=== PATIENT | male | born 1995 | race Caucasian/White ===

== ENCOUNTER 2018-09-18 13:11 | Emergency (ER) | payer SELFPAY ==
--- NOTE | 2018-09-18 13:57 | ED ---
Abdominal Pain/Male - HPI Summary HPI Summary: Patient is a 22 y/o M w/ c/o RLQ pain, N/V, dizziness and weakness. He states that he was struck by a snowball five days ago at this area and experienced immediate pain, stating the impact caused him to double over. Pain is reported to be constant. Patient notes that lying down alleviates pain, denies exacerbation of pain after eating. Today, while shopping at [facility], he experienced weakness, dizziness, nausea, and vomiting once. He denies testicular pain, scrotum pain. PMHx of diabetes is denied, FMHx of diabetes is endorsed, patient states in the room he does not smoke cigarettes or drinks alc. Fever, chills, erythema of eyes, sore throat, chest pain, SOB, cough, dysuria, hematuria, myalgia, edema, rash are not reported. On triage, pain is rated 3/10 , nothing is noted to aggravate/alleviate Sx. Home medications and allergies are reviewed. - History of Current Complaint Chief Complaint: EDAbdPain Stated Complaint: ABD PAIN Time Seen by Provider: 09/18/18 13:53 Hx Obtained From: Patient Onset/Duration: Lasting Hours - weakness, dizziness, nausea, and vomiting, Lasting Days - abdominal pain five days, Still Present Timing: Constant, Lasting Hours - weakness, dizziness, nausea, and vomiting, Lasting Days - abdominal pain five days Severity Currently: Mild - 3/10 Pain Intensity: 3 Pain Scale Used: 0-10 Numeric - 3/10 Location: Discrete At: RLQ Aggravating Factor(s): Nothing Alleviating Factor(s): Position - lying flat Associated Signs And Symptoms: Positive: Dizzy, Nausea, Vomiting, Other - Fever , chills, erythema of eyes, sore throat, chest pain, SOB, cough, dysuria, hematuria, myalgia, edema, rash are not reported.. Negative: Fever, Cough, Chest Pain, Urinary Symptoms - Allergies/Home Medications Allergies/Adverse Reactions: Allergies Allergy/AdvReac Type Severity Reaction Status Date / Time No Known Allergies Allergy Verified 09/18/18 13:59 PMH/Surg Hx/FS Hx/Imm Hx Endocrine/Hematology History: Denies: Hx Diabetes Psychiatric History: Reports: Hx Anxiety - Surgical History Surgery Procedure, Year, and Place: removal of benign lump at left breast Infectious Disease History: No Infectious Disease History: Denies: Traveled Outside the [place] in Last 30 Days - Family History Known Family History: Positive: Diabetes - Social History Alcohol Use: None Substance Use Type: Reports: None Smoking Status (MU): Former Smoker Review of Systems Positive: Fatigue. Negative: Fever, Chills Negative: Erythema Negative: Sore Throat Negative: Chest Pain Negative: Shortness Of Breath, Cough Positive: Abdominal Pain - RLQ , Vomiting, Nausea Negative: pain - NEGATIVE - TESTICULAR PAIN, SCROTUM PAIN Negative: Myalgia, Edema Negative: Rash Neurological: Other - POSITIVE - DIZZINESS All Other Systems Reviewed And Are Negative: Yes Physical Exam - Summary Physical Exam Summary: Constitutional: Well-developed, Well-nourished, Alert. (-) Distressed Skin: Warm, Dry HENT: Normocephalic; Atraumatic Eyes: Conjunctiva normal Neck: Musculoskeletal ROM normal neck. (-) JVD, (-) Stridor, (-) Tracheal deviation Cardio: Rhythm regular, rate normal, Heart sounds normal; Intact distal pulses; The pedal pulses are 2+ and symmetric. Radial pulses are 2+ and symmetric. (-) Murmur Pulmonary/Chest wall: Effort normal. (-) Respiratory distress, (-) Wheezes, (-) Rales Abd: Soft, (-) epigastric tenderness, (+) exquisite RLQ tenderness (-) Distension, (+) Guarding at RLQ, (-) Rebound Musculoskeletal: (-) Edema (-) Bruising Lymph: (-) Cervical adenopathy Neuro: Alert, Oriented x3 Psych: Mood and affect Normal Triage Information Reviewed: Yes Vital Signs On Initial Exam: Initial Vitals Temp Pulse Resp BP Pulse Ox 98.5 F 89 16 117/80 98 09/18/18 13:12 09/18/18 13:12 09/18/18 13:12 09/18/18 13:12 09/18/18 13:12 Vital Signs Reviewed: Yes Diagnostics - Vital Signs Vital Signs Temp Pulse Resp BP Pulse Ox 09/18/18 13:12 98.5 F 89 16 117/80 98 - Laboratory Result Diagrams: 09/18/18 14:05 09/18/18 14:05 Lab Statement: Any lab studies that have been ordered have been reviewed, and results considered in the medical decision making process. - CT ABD/PEL CT CT Interpretation Completed By: Radiologist Summary of CT Findings: CT ABD/PEL IMPRESSION: There is a trace amount of free fluid in the cul-de-sac. No abnormal masses or fluid collections are noted. Hepatosplenomegaly. No evidence of solid organ injury is noted. THIS REPORT WAS REVIEWED BY ED PHYSICIAN. Re-Evaluation - Re-Evaluation First Eval Re-Evaluation Time: 14:46 Change: Worse Comment: Area above SL reddened and itchy, Benadryl PO ordered Second Eval Re-Evaluation Time: 15:52 Change: Improved Comment: Area above SL reddened and itchy Sx resolved after benadryl PO. Third Eval Re-Evaluation Time: 16:20 Change: Improved Comment: Patient's pain is reported to be better, patient tolerated PO. He will be discharged to home and follow up with PCP, patient is agreeable with this plan. Abdominal Pain Fem Course/Dx - Course Course Of Treatment: Patient is a 22 y/o M w/ c/o RLQ pain, N/V, dizziness and weakness. He states that he was struck by a snowball five days ago at this area and experienced immediate pain, stating the impact caused him to double over. Pain is reported to be constant. Patient notes that lying down alleviates pain, denies exacerbation of pain after eating. Today, while shopping at [facility], he experienced weakness, dizziness, nausea, and vomiting once. He denies testicular pain, scrotum pain. PMHx of diabetes is denied, FMHx of diabetes is endorsed, patient states in the room he does not smoke cigarettes or drinks alc. On physical exam, patient is noted to have no bruises. At RLQ, exquisite tenderness with guarding. 1620 - Patient's pain is reported to be better, patient tolerated PO. He will be discharged to home and follow up with PCP, patient is agreeable with this plan. Area above SL reddened and itchy, patient was given Benadryl PO which alleviated Sx. During ED course, patient received Zofran 4 mg IV ED ONCE ONE, Morphine 4 mg IV ED ONCE ONE, and Benadryl 50 mg PO ED ONCE ONE. UA was negative. Labs showed lactic acid 1.5, glucose 108, WBC 11.8, Absolute Neuts 10.3, absolute nymphs 0.8. CT ABD/PEL IMPRESSION: There is a trace amount of free fluid in the cul-de-sac. No abnormal masses or fluid collections are noted. Hepatosplenomegaly. No evidence of solid organ injury is noted. Patient's case was discussed with Dr. Ochoa, in particular CT ABD/ PEL. He states that patient has a normal appendix. - Diagnoses Provider Diagnoses: Abdominal contusion - Provider Notifications Discussed Care Of Patient With: Opal Ochoa Time Discussed With Above Provider: 16:15 Instructed by Provider To: Other - Patient's case was discussed with Dr. Ochoa, in particular CT ABD/PEL. He states that patient has a normal appendix. Discharge - Sign-Out/Discharge Documenting (check all that apply): Patient Departure - discharge - Discharge Plan Condition: Stable Disposition: HOME Prescriptions: Naproxen TAB* [Naprosyn 250 mg TAB*] 500 mg PO Q8H PRN #15 tab PRN Reason: Pain - Moderate To Severe Ondansetron ODT TAB* [Zofran 4 MG Odt TAB*] 4 mg PO Q8H PRN #10 tab.odt PRN Reason: Nausea/Vomiting traMADol TAB* [Ultram*] 50 mg PO Q6HR PRN #12 tab MDD 4 PRN Reason: Pain - Moderate To Severe Patient Education Materials: Contusion in Adults (ED) Referrals: Sami Benavides DO [Doctor of Osteopathy] - 3 Days Additional Instructions: RETURN TO ED FOR ANY NEW OR WORSENING SYMPTOMS. FOLLOW UP WITH PRIMARY CARE PHYSICIAN IN 2-3 DAYS. - Attestation Statements Document Initiated by Scribe: Yes Documenting Scribe: VAUGHN JOHNSON Provider For Whom Brandonibe is Documenting (Include Credential): STEVE IRAHETA MD Scribe Attestation: VAUGHN Avila , scribed for STEVE IRAHETA MD on 09/18/18 at 1642. Status of Scribe Document: Ready
[2018-09-18] MEDS ORDERED: Ondansetron INJ* 2 MG/ML VIAL IV ONE (14:00)
[2018-09-18] MEDS ORDERED: Morphine VIAL* 4 MG/ML VIAL (1 ml vial) IV ONE (14:00)
[2018-09-18 14:19] LABS: ABS Basophils 0 10^3/ul (0-0.2); ABS Eosinophils 0 10^3/ul (0-0.6); ABS Lymphocytes 0.8 10^3/ul (1.0-4.8); ABS Monocytes 0.6 10^3/ul (0-0.8); ABS Neutrophils 10.3 10^3/ul (1.5-7.7); ABS Nucleated RBC 0 10^3/ul; Eosinophil % 0.3 %; Hematocrit 45 % (42-52); Hemoglobin 15.7 g/dl (14.0-18.0); Lymphocyte % 6.5 %; Mean Corpuscular HGB Conc 35 g/dl (31-36); Mean Corpuscular Hemoglobin 30 pg (27-31); Mean Corpuscular Volume 86 fL (80-94); Mean Platelet Volume 9.2 fL (7.4-10.4); Nucleated Red Blood Cells % 0.1; Platelet Count 208 10^3/ul (150-450); Red Cell Distribution Width 13 % (10.5-15); White Blood Count 11.8 10^3/ul (3.5-10.8)
[2018-09-18] MEDS ORDERED: diPHENhydraMINE PO* 50 MG PO ONE (14:34)
[2018-09-18 15:03] LABS: EGFR Non-African American 95.6 (>60)
[2018-09-18] MEDS ORDERED: Iohexol 300* (CONTRAST) 10 ML SDV IV ONE (15:18)
[2018-09-18 16:14] LABS: Urine Appearance Clear; Urine Blood Negative (Negative); Urine Color Yellow; Urine Ketones Negative (Negative); Urine Protein Negative (Negative); Urine Specific Gravity 1.021 (1.010-1.030); Urine Urobilinogen Negative (Negative)
[2018-09-18 17:00] VITALS: BP 138/76
== END 2018-09-18 16:59 | disposition home or self-care (01) ==
LOC: ED 13:11
DX: S30.1XXA Contusion of abdominal wall, initial encounter (principal); W20.8XXA Other cause of strike by thrown, projected or falling object, initial encounter; Y92.9 Unspecified place or not applicable; R11.2 Nausea with vomiting, unspecified; R42 Dizziness and giddiness; R53.83 Other fatigue; Z87.891 Personal history of nicotine dependence
CPT/HCPCS: 36415; 74177; 80053; 81003; 83605; 85025; 96374; 96375; 99283; A9270-GY; J2270; J2405; Q9967

== ENCOUNTER 2018-10-25 19:24 | Emergency (ER) | payer OTHER ==
--- NOTE | 2018-10-25 21:54 | ED ---
Skin Complaint - HPI Summary HPI Summary: This patient is a 22 year old M presenting to [facility] with a chief complaint of erythematous rash on his back, arms, legs, and feet since 10/23/18. The patient rates the pain 3/10 in severity. Patient reports pruritus. Patient denies fever. The patient states that he tried to treat the rash with allergy medication and anti-itch cream, but was unsuccessful. The rash has not been spreading. SHX living at a hotel for 2 weeks. - History of Current Complaint Chief Complaint: EDRashSkinAbscess Stated Complaint: RASH Hx Obtained From: Patient Onset/Duration: Started Days Ago - 2 Timing: Constant Onset Severity: Mild Current Severity: Mild Pain Intensity: 3 Pain Scale Used: 0-10 Numeric Skin Location: Diffuse Character: Pruritus, Redness, Raised Associated Signs & Symptoms: Rash - Allergy/Home Medications Allergies/Adverse Reactions: Allergies Allergy/AdvReac Type Severity Reaction Status Date / Time No Known Allergies Allergy Verified 10/25/18 19:32 PMH/Surg Hx/FS Hx/Imm Hx Endocrine/Hematology History: Denies: Hx Diabetes Sensory History: Denies: Hx Deafness Psychiatric History: Reports: Hx Anxiety - Surgical History Surgery Procedure, Year, and Place: removal of benign lump at left breast Infectious Disease History: No Infectious Disease History: Denies: Traveled Outside the [place] in Last 30 Days - Family History Known Family History: Positive: Diabetes Negative: Blood Disorder - Social History Alcohol Use: None Substance Use Type: Reports: None Smoking Status (MU): Former Smoker Review of Systems Negative: Fever Positive: Rash, Other - pruritus All Other Systems Reviewed And Are Negative: Yes Physical Exam - Summary Physical Exam Summary: Appearance: Well-appearing, Well-nourished, lying in bed comfortable Skin: Warm, dry. Numerable round, erythematous, centrally indurated skin lesions associated with insect bites No signs of associated cellulitis. Eyes: sclera anicteric, no conjunctival pallor ENT: mucous membranes moist Neck: deferred Respiratory: No signs of respiratory distress Cardiovascular: Appears well perfused, pulses are nml Abdomen: deferred Musculoskeletal: Moving all 4 extremities without obvious discomfort Neurological: Awake and alert, mentation is normal, speech is fluent and appropriate Psychiatric: affect is normal, does not appear anxious or depressed Triage Information Reviewed: Yes Vital Signs On Initial Exam: Initial Vitals Temp Pulse Resp BP Pulse Ox 99.7 F 88 16 123/79 100 10/25/18 19:28 10/25/18 19:28 10/25/18 19:28 10/25/18 19:28 10/25/18 19:28 Vital Signs Reviewed: Yes Diagnostics - Vital Signs Vital Signs Temp Pulse Resp BP Pulse Ox 10/25/18 19:28 99.7 F 88 16 123/79 100 - Laboratory Lab Statement: Any lab studies that have been ordered have been reviewed, and results considered in the medical decision making process. Course/Dx - Course Assessment/Plan: This patient is a 22 year old M presenting to [facility] with a chief complaint of erythematous rash on his back, arms, legs, and feet since 10/23. The patient rates the pain 3/10 in severity. Patient reports pruritus. Patient denies fever. The patient states that he tried to treat the rash with allergy medication and anti-itch cream, but was unsuccessful. The rash has not been spreading. SHX living at a hotel for 2 weeks. Patient will be discharged with prescription for Hydroxyzine pamoate and follow up from Dr. Benavides. The patient is agreeable with this plan. - Diagnoses Provider Diagnoses: Insect bite, Bed bug bite Discharge - Sign-Out/Discharge Documenting (check all that apply): Patient Departure - discharge - Discharge Plan Condition: Good Disposition: HOME Prescriptions: hydrOXYzine pamoate [Vistaril] 50 mg PO TID PRN #30 capsule PRN Reason: Pruritis Patient Education Materials: Insect Bite or Sting (ED), Bed Bugs (ED) Referrals: Sami Benavides DO [Primary Care Provider] - 1 Week (if not improving) - Billing Disposition and Condition Condition: GOOD Disposition: Home - Attestation Statements Document Initiated by Brandonibtre: Yes Documenting Scribe: Donell Shaw Provider For Whom Maria Esther is Documenting (Include Credential): Gary Shirley MD Scribe Attestation: Donell Avila, brandonibed for Gary Shirley MD on 10/26/18 at 0449. Scribe Documentation Reviewed: Yes Provider Attestation: The documentation as recorded by the Donell dill accurately reflects the service I personally performed and the decisions made by me, Gary Shirley MD Status of Scribe Document: Viewed
[2018-10-25 21:58] VITALS: BP 112/73
== END 2018-10-25 21:57 | disposition home or self-care (01) ==
LOC: ED 19:24
DX: S40.862A Insect bite (nonvenomous) of left upper arm, initial encounter (principal); S40.861A Insect bite (nonvenomous) of right upper arm, initial encounter; S80.862A Insect bite (nonvenomous), left lower leg, initial encounter; S80.861A Insect bite (nonvenomous), right lower leg, initial encounter; S90.862A Insect bite (nonvenomous), left foot, initial encounter; S90.861A Insect bite (nonvenomous), right foot, initial encounter; W57.XXXA Bitten or stung by nonvenomous insect and other nonvenomous arthropods, initial encounter; Y92.9 Unspecified place or not applicable; Z87.891 Personal history of nicotine dependence
CPT/HCPCS: 99281

== ENCOUNTER 2019-01-22 16:41 | Emergency (ER) | payer OTHER ==
[2019-01-22 17:14] LABS: Influenza A Molecular NEGATIVE (Negative); Influenza B Molecular NEGATIVE (Negative)
[2019-01-22 17:27] LABS: Rapid Strep Molecular Negative (Negative)
--- NOTE | 2019-01-22 17:37 | ED ---
Throat Pain/Nasal Congestion - HPI Summary HPI Summary: 23 year old male presents with nasal congestion and sore throat for the past couple days. He denies any fevers. He admits to fatigue. Admits occasional headache. No neck stiffness denies any chest pressures or shortness of breath. No bowel pain. No nausea vomiting. He has no medical conditions who is nonsmoker. Cough is dry. He states sinus congestion and sore throat are bothering him the most. - History of Current Complaint Chief Complaint: EDFluSymptoms Time Seen by Provider: 01/22/19 17:05 - Allergies/Home Medications Allergies/Adverse Reactions: Allergies Allergy/AdvReac Type Severity Reaction Status Date / Time No Known Allergies Allergy Verified 01/22/19 17:02 PMH/Surg Hx/FS Hx/Imm Hx Endocrine/Hematology History: Denies: Hx Diabetes Respiratory History: Denies: Hx Asthma Sensory History: Denies: Hx Deafness Psychiatric History: Reports: Hx Anxiety - Surgical History Surgery Procedure, Year, and Place: removal of benign lump at left breast Infectious Disease History: No Infectious Disease History: Denies: Traveled Outside the [place] in Last 30 Days - Family History Known Family History: Positive: Diabetes Negative: Blood Disorder - Social History Alcohol Use: None Substance Use Type: Reports: None Smoking Status (MU): Former Smoker Review of Systems Negative: Fever Positive: Sore Throat, Nasal Discharge Negative: Chest Pain Positive: Cough. Negative: Shortness Of Breath Negative: Abdominal Pain All Other Systems Reviewed And Are Negative: Yes Physical Exam Triage Information Reviewed: Yes Vital Signs On Initial Exam: Initial Vitals Temp Pulse Resp BP Pulse Ox 97.8 F 89 20 139/90 100 01/22/19 16:46 01/22/19 16:46 01/22/19 16:46 01/22/19 16:46 01/22/19 16:46 Vital Signs Reviewed: Yes Appearance: Positive: Well-Appearing Skin: Positive: Warm, Dry Head/Face: Positive: Normal Head/Face Inspection Eyes: Positive: Normal, EOMI, KATTY, Conjunctiva Clear ENT: Positive: Normal ENT inspection, Pharyngeal erythema, Nasal congestion, TMs normal, Uvula midline, Other - soft palate symmetric. Negative: Tonsillar swelling, Tonsillar exudate, Trismus, Muffled voice Respiratory/Lung Sounds: Positive: Clear to Auscultation, Breath Sounds Present Cardiovascular: Positive: Normal, RRR Abdomen Description: Positive: Nontender, Soft Bowel Sounds: Positive: Present Musculoskeletal: Positive: Normal Neurological: Positive: Normal Psychiatric: Positive: Normal Diagnostics - Vital Signs Vital Signs Temp Pulse Resp BP Pulse Ox 01/22/19 16:46 97.8 F 89 20 139/90 100 - Laboratory Lab Results: Lab Results 01/22/19 01/22/19 Range/Units 16:50 17:04 Influenza A (Rapid) Negative (Negative) Influenza B (Rapid) Negative (Negative) Group A Strep Rapid Negative (Negative) Lab Statement: Any lab studies that have been ordered have been reviewed, and results considered in the medical decision making process. EENT Course/Dx - Course Course Of Treatment: 23 year old male presents with nasal congestion and sore throat for the past couple days. He denies any fevers. He admits to fatigue. Admits occasional headache. No neck stiffness denies any chest pressures or shortness of breath. No bowel pain. No nausea vomiting. He has no medical conditions who is nonsmoker. Cough is dry. He states sinus congestion and sore throat are bothering him the most. On exam lungs clear to auscultation. Pharynx erythematous. Uvula midline. Soft palate symmetric. sinus congestion Strep flu negative. We'll give Flonase for sinus congestion. Patient understands agrees plan. - Differential Diagnoses Differential Diagnoses: Sinusitis, URI/Bronchitis, Other - strept - Diagnoses Provider Diagnoses: Upper respiratory infection Discharge - Sign-Out/Discharge Documenting (check all that apply): Patient Departure Patient Received Moderate/Deep Sedation with Procedure: No - Discharge Plan Condition: Good Disposition: HOME Prescriptions: Fluticasone NASAL SPRAY 50MCG* [Flonase NASAL SPRAY 50MCG*] 2 spray BOTH NARES DAILY #1 btl Patient Education Materials: Upper Respiratory Infection (ED) Referrals: Sami Benavides DO [Primary Care Provider] - Additional Instructions: Use saline spray in nose as much as needed can use sudafed daily Use intranasal steroid one spray each nostril twice a day Take Tylenol or ibuprofen for headache every 6 hours Follow up with primary in 5 days if no improvement Return to ED if develop any new or worsening symptoms - Billing Disposition and Condition Condition: GOOD Disposition: Home
[2019-01-22 18:08] VITALS: BP 126/71
== END 2019-01-22 18:07 | disposition home or self-care (01) ==
LOC: ED 16:41
DX: J06.9 Acute upper respiratory infection, unspecified (principal); R53.83 Other fatigue; Z87.891 Personal history of nicotine dependence
CPT/HCPCS: 87651; 99282

== ENCOUNTER 2019-04-29 19:42 | Emergency (ER) | payer SELFPAY ==
--- NOTE | 2019-04-29 20:21 | ED ---
Lower Extremity - HPI Summary HPI Summary: 23-year-old female presents with left foot and ankle injury today. He states he ended up twisting his ankle. He is unable to ambulate. He felt a pop. He denies any numbness or tingling. Has no medical conditions. - History of Current Complaint Chief Complaint: EDExtremityLower Stated Complaint: LT FOOT HURT, SWELLING PER PT Time Seen by Provider: 04/29/19 20:16 Pain Intensity: 10 - Allergies/Home Medications Allergies/Adverse Reactions: Allergies Allergy/AdvReac Type Severity Reaction Status Date / Time tramadol Allergy Vomiting Verified 04/29/19 19:56 PMH/Surg Hx/FS Hx/Imm Hx Endocrine/Hematology History: Denies: Hx Diabetes Respiratory History: Denies: Hx Asthma Sensory History: Denies: Hx Deafness Psychiatric History: Reports: Hx Anxiety - Surgical History Surgery Procedure, Year, and Place: removal of benign lump at left breast Infectious Disease History: No Infectious Disease History: Denies: Traveled Outside the [place] in Last 30 Days - Family History Known Family History: Positive: Diabetes Negative: Blood Disorder - Social History Alcohol Use: None Substance Use Type: Reports: None Smoking Status (MU): Former Smoker Review of Systems Negative: Fever Negative: Chest Pain Negative: Shortness Of Breath Positive: Myalgia - left ankle pain All Other Systems Reviewed And Are Negative: Yes Physical Exam Triage Information Reviewed: Yes Vital Signs On Initial Exam: Initial Vitals Temp Pulse Resp BP Pulse Ox 98.1 F 100 16 118/75 100 04/29/19 19:54 04/29/19 19:54 04/29/19 19:54 04/29/19 19:54 04/29/19 19:54 Vital Signs Reviewed: Yes Appearance: Positive: Well-Appearing Skin: Positive: Warm, Dry Head/Face: Positive: Normal Head/Face Inspection Eyes: Positive: Normal, Conjunctiva Clear ENT: Positive: Pharynx normal Respiratory/Lung Sounds: Positive: Clear to Auscultation, Breath Sounds Present Cardiovascular: Positive: Normal, RRR Musculoskeletal: Positive: Limited @ - left ankle, Other - good pulses, tenderness over lateral aspect of left ankle Neurological: Positive: Normal Psychiatric: Positive: Normal Diagnostics - Vital Signs Vital Signs Temp Pulse Resp BP Pulse Ox 04/29/19 19:54 98.1 F 100 16 118/75 100 - Laboratory Lab Statement: Any lab studies that have been ordered have been reviewed, and results considered in the medical decision making process. - Radiology foot, ankle Radiology Interpretation Completed By: ED Physician Summary of Radiographic Findings: avulsion fracture of navicular Lower Extremity Course/Dx - Course Course Of Treatment: 23-year-old female presents with left foot and ankle injury today. He states he ended up twisting his ankle. He is unable to ambulate. He felt a pop. He denies any numbness or tingling. Has no medical conditions. On exam tenderness over lateral aspect of the ankle. Neurovascular intact. X-ray shows potential avulsion of the navicular bone. Place patient in the boot and given crutches. Told to follow-up with ortho. Patient understands agrees with plan. - Diagnoses Differential Diagnosis/HQI/PQRI: Positive: Fracture (Closed), Sprain, Strain Provider Diagnoses: Left ankle pain, Avulsion fracture of navicular bone of foot Discharge - Sign-Out/Discharge Documenting (check all that apply): Patient Departure Patient Received Moderate/Deep Sedation with Procedure: No - Discharge Plan Condition: Good Disposition: HOME Patient Education Materials: R.I.C.E. Treatment (ED) Referrals: Sami Benavides DO [Primary Care Provider] - Matt Roland MD [Medical Doctor] - Additional Instructions: Stay off ankle as much as possible Ice, elevate, use boot Ibuprofen or tyenlol every 6 hours for pain Follow up with ortho Return to ED if develop or any new or worsening symptoms - Billing Disposition and Condition Condition: GOOD Disposition: Home
[2019-04-29 21:09] VITALS: BP 120/66
== END 2019-04-29 21:08 | disposition home or self-care (01) ==
LOC: ED 19:42
DX: S92.252A Displaced fracture of navicular [scaphoid] of left foot, initial encounter for closed fracture (principal); X58.XXXA Exposure to other specified factors, initial encounter; Z88.8 Allergy status to other drugs, medicaments and biological substances; Z87.891 Personal history of nicotine dependence
CPT/HCPCS: 99282

== ENCOUNTER 2019-05-17 | Emergency (ER) | payer SELFPAY ==
--- NOTE | 2019-05-17 01:16 | ED ---
Complex/Multi-Sys Presentation - HPI Summary HPI Summary: This patient is a 23 year old M presenting to [facility] with a chief complaint of CP , and SOB since today. Pt reports when he returned home from [employer], he began to have CP, and SOB. Pt has had sore throat, body pains, THOMAS, and dizziness for the past couple of days. Pt fractured ankle at beginning of this month, and has not been camping, or doing yard work. Patient reports runny nose, loss of appetite (has not eaten since five), nausea, ear pain, chills. Patient denies cough. Pt has a FHx of diabetes, and last took ibuprofen at the beginning of last week. - History Of Current Complaint Chief Complaint: EDDizziness Time Seen by Provider: 05/17/19 01:03 Hx Obtained From: Patient Onset/Duration: Gradual Onset, Lasting Hours, Lasting Days, Still Present Timing: Constant Severity Currently: Severe Severity Initially: Severe Aggravating Factor(s): Negative Alleviating Factor(s): Negative Associated Signs And Symptoms: Positive: Dizziness, Headache, SOB, Chest Pain, Nausea, Other - Sore throat, body pains, ear pain. Negative: Cough - Allergies/Home Medications Allergies/Adverse Reactions: Allergies Allergy/AdvReac Type Severity Reaction Status Date / Time tramadol Allergy Vomiting Verified 05/17/19 00:15 Home Medications: Home Medications NK [No Home Medications Reported] 05/17/19 [History Confirmed 05/17/19] PMH/Surg Hx/FS Hx/Imm Hx Endocrine/Hematology History: Denies: Hx Diabetes Respiratory History: Denies: Hx Asthma Sensory History: Denies: Hx Deafness Psychiatric History: Reports: Hx Anxiety - Surgical History Surgery Procedure, Year, and Place: removal of benign lump at left breast Infectious Disease History: No Infectious Disease History: Denies: Traveled Outside the [place] in Last 30 Days - Family History Known Family History: Positive: Diabetes Negative: Blood Disorder - Social History Occupation: Employed Full-time Alcohol Use: None Substance Use Type: Reports: None Smoking Status (MU): Former Smoker Review of Systems Positive: Chills, Other - pos - body pains, loss of appetite Positive: Sore Throat, Ear Ache, Nasal Discharge Positive: Chest Pain Positive: Shortness Of Breath Positive: Nausea Neurological: Other - pos - dizziness Positive: Headache All Other Systems Reviewed And Are Negative: Yes Physical Exam - Summary Physical Exam Summary: Constitutional: Well-developed, Well-nourished, Alert. (-) Distressed Skin: Warm, Dry; Chronic ecchymatic rash to whole body HENT: Normocephalic; Atraumatic; Obvious tenderness to insertion of ariel scope in right ear; Hyperemia in right ear;No exudates in posterior pharynx Eyes: Conjunctiva normal Neck: Musculoskeletal ROM normal neck. (-) JVD, (-) Stridor, (-) Tracheal deviation Cardio: Rhythm regular, Fluctuating from 90 bpm - low 100 bpm, Heart sounds normal; Intact distal pulses; The pedal pulses are 2+ and symmetric. Radial pulses are 2+ and symmetric. Pulmonary/Chest wall: Effort normal. (-) Respiratory distress, (-) Wheezes, (-) Rales Abd: Soft, (-) tenderness, (-) Distension, (-) Guarding, (-) Rebound Musculoskeletal: (-) Edema; Tenderness to mastery bone on left side Neuro: Alert, Oriented x3 Psych: Mood and affect Normal Triage Information Reviewed: Yes Vital Signs On Initial Exam: Initial Vitals Temp Pulse Resp BP Pulse Ox 99.9 F 100 18 123/100 99 05/17/19 00:09 05/17/19 00:09 05/17/19 00:09 05/17/19 00:09 05/17/19 00:09 Vital Signs Reviewed: Yes Diagnostics - Vital Signs Vital Signs Temp Pulse Resp BP Pulse Ox 05/17/19 00:42 99 21 117/73 99 05/17/19 00:13 102 123/102 100 05/17/19 00:09 99.9 F 100 18 123/100 99 - Laboratory Result Diagrams: 05/17/19 01:37 05/17/19 01:37 Lab Statement: Any lab studies that have been ordered have been reviewed, and results considered in the medical decision making process. - CT Temporal Bone CT CT Interpretation Completed By: Radiologist Summary of CT Findings: Temporal Bone CT reveals, per radiologist, IMPRESSION: 1. Hypoplastic mastoids. 2. Bilateral mastoiditis. ED physician has reviewed this radiology report. Re-Evaluation - Re-Evaluation First Eval Re-Evaluation Time: 04:06 Comment: Discussed plan to transfer. Pt wants to leave AMA. Second Eval Re-Evaluation Time: 04:37 Comment: After discussing the risks of leaving AMA, pt is willing to be transfered. Complex Multi-Symp Course/Dx Course Of Treatment: This patient is a 23 year old M presenting to [facility] with a chief complaint of CP, and SOB since today. Pt reports when he returned home from [employer], he began to have CP, and SOB. Pt has had sore throat, body pains, THOMAS, and dizziness for the past couple of days. Pt fractured ankle at beginning of this month, and has not been camping, or doing yard work. Patient reports runny nose, loss of appetite (has not eaten since five), nausea, ear pain, chills. Patient denies cough. Pt has a FHx of diabetes, and last took ibuprofen at the beginning of last week. Per triage, the patient rates the pain 8/10 in severity. Blood work obtained. Temporal Bone CT reveals, IMPRESSION: 1. Hypoplastic mastoids. 2. Bilateral mastoiditis. In the ED course the patient was given fluids, Levofloxacin, Ondansetron, and Ketorolac. Dr. Boykin is the accepting physician. Patient will be transferred to the [facility]. The patient is agreeable with this plan. - Diagnoses Provider Diagnoses: Mastoiditis - Physician Notifications Discussed Care Of Patient With: Reena Boykin Time Discussed With Above Provider: 05:34 Instructed by Provider To: Other - Patient will be transferred to the [facility]. Dr. Boykin is the accepting physician. Also spoke to Dr. Kimble, who agrees that pt is fit for admission to internal medicine. Discharge - Sign-Out/Discharge Documenting (check all that apply): Patient Departure - Transfer Patient Received Moderate/Deep Sedation with Procedure: No - Discharge Plan Condition: Fair Disposition: TRANS HIGHER LVL OF CARE FAC Referrals: Sami Benavides DO [Primary Care Provider] - - Billing Disposition and Condition Condition: FAIR Disposition: Trans Higher Lvl of Care Fac - Attestation Statements Document Initiated by Scribe: Yes Documenting Scribe: Jocelyn Flowers Provider For Whom Scribe is Documenting (Include Credential): Dr. Hoang Mishra Scribe Attestation: I, Jocelyn Flowers, scribed for Dr. Hoang Mishra on 05/17/19 at 0611. Scribe Documentation Reviewed: Yes Provider Attestation: The documentation as recorded by the scribtre, Jocelyn Flowers accurately reflects the service I personally performed and the decisions made by me, Dr. Hoang Mishra Status of [place] Document: Viewed
[2019-05-17] MEDS ORDERED: Ketorolac INJ* 30 MG/ML 1 ML VIAL IV PUSH ONE (01:17)
[2019-05-17] MEDS ORDERED: Ondansetron INJ* 2 MG/ML VIAL IV ONE (01:17)
[2019-05-17] MEDS ORDERED: ED cefTRIAXone 1 GM/50 ML 1 GM/50 ML PREMIX.SET IVPB ONE (01:18)
[2019-05-17 01:51] LABS: ABS Lymphocytes 0.6 10^3/ul (1.0-4.8); ABS Monocytes 0.7 10^3/ul (0-0.8); ABS Neutrophils 6.7 10^3/ul (1.5-7.7); Eosinophil % 0.4 %; Hematocrit 41 % (42-52); Hemoglobin 14.5 g/dL (14.0-18.0); Lymphocyte % 7.1 %; Mean Corpuscular HGB Conc 35 g/dL (31-36); Mean Corpuscular Hemoglobin 30 pg (27-31); Mean Corpuscular Volume 86 fL (80-94); Nucleated Red Blood Cells % 0.1; Platelet Count 182 10^3/uL (150-450); Red Blood Count 4.77 10^6 /uL (4.18-5.48); Red Cell Distribution Width 14 % (10-15)
[2019-05-17] MEDS ORDERED: cefTRIAXone(*) 1 GM in NS 0.9% 50 ML* 50 ML IVPB ONE (02:00)
[2019-05-17] MEDS ORDERED: Lactated Ringers 1000 ML Bag* 1,000 ML IV ONE (02:00)
[2019-05-17 02:01] LABS: BUN/Creatinine Ratio 14.4 (8-20); Calcium 9.7 mg/dL (8.6-10.3); EGFR African American 107.1 (>60); EGFR Non-African American 88.5 (>60); Potassium 3.4 mmol/L (3.5-5.0)
[2019-05-17] MEDS ORDERED: Levofloxacin 500 MG IVPREMIX(* 500 MG/100 ML BAG IVPB ONE (04:01)
[2019-05-17] MEDS ORDERED: oxyCODONE/Acetamin 5/325 MG* TAB PO ONE (07:31)
[2019-05-17 07:36] VITALS: BP 117/74
== END 2019-05-17 07:30 | disposition short-term general hospital (02) ==
LOC: ED
DX: H70.93 Unspecified mastoiditis, bilateral (principal); Z88.5 Allergy status to narcotic agent; Z87.891 Personal history of nicotine dependence
CPT/HCPCS: 36415; 70480; 80048; 85025; 96365; 96366; 96375; 99284; A9270-GY; J0696; J1885; J1956; J2405

== ENCOUNTER 2019-11-05 12:30 | Emergency (ER) | payer MEDICAID, OTHER ==
--- NOTE | 2019-11-05 13:36 | ED ---
Throat Pain/Nasal Congestion - HPI Summary HPI Summary: This pt is a 23 y/o male presenting to [facility] c/o left upper dental pain and swelling since 3 days ago. Pt states since 3 days ago he has noticed swelling to the left side of his face. Pt reports he has difficulty eating and drinking secondary to discomfort. Additionally notes he has a foul taste in his mouth. Denies fever, difficulty breathing, difficulty swallowing. Pt notes he has been unable to see a dentist and states he is new in the area. Denies any PMHx. Denies tobacco, alcohol, and drug use. Allergies to Tramadol. - History of Current Complaint Chief Complaint: EDDentalPain Time Seen by Provider: 11/05/19 13:20 Hx Obtained From: Patient Onset/Duration: Lasting Days, Still Present Severity: Moderate Associated Signs And Symptoms: Positive: Negative Cough: None - Allergies/Home Medications Allergies/Adverse Reactions: Allergies Allergy/AdvReac Type Severity Reaction Status Date / Time tramadol Allergy Vomiting Verified 05/17/19 00:15 PMH/Surg Hx/FS Hx/Imm Hx Endocrine/Hematology History: Denies: Hx Diabetes Respiratory History: Denies: Hx Asthma Sensory History: Denies: Hx Deafness Psychiatric History: Reports: Hx Anxiety - Surgical History Surgical History: Yes Surgery Procedure, Year, and Place: removal of benign lump at left breast Infectious Disease History: No Infectious Disease History: Denies: Traveled Outside the [place] in Last 30 Days - Family History Known Family History: Positive: Diabetes - brother Negative: Blood Disorder - Social History Alcohol Use: None Substance Use Type: Reports: None Smoking Status (MU): Former Smoker Review of Systems Negative: Fever ENT: Other - POSITIVE: left sided facial swelling Negative: Other - NEGATIVE: difficulty swallowing. Negative: Shortness Of Breath Gastrointestinal: Negative Genitourinary: Negative All Other Systems Reviewed And Are Negative: Yes Physical Exam - Summary Physical Exam Summary: VITAL SIGNS: Reviewed. GENERAL: Patient is a well-developed and nourished male. Patient is not in any acute respiratory distress. HEAD AND FACE: No signs of trauma. No ecchymosis, hematomas or skull depressions. No sinus tenderness. EYES: PERRLA, EOMI x 2, No injected conjunctiva, no nystagmus. EARS: Hearing grossly intact. Ear canals and tympanic membranes are within normal limits. MOUTH: Oropharynx within normal limits. Left upper molar is missing. Multiple cavities. Slight swelling on the left side of the face. No trismus. Airway is not compromised. No swelling of the tongue or lips. NECK: Supple, trachea is midline, no adenopathy, no JVD, no carotid bruit, no c- spine tenderness, neck with full ROM. CHEST: Symmetric, no tenderness at palpation LUNGS: Clear to auscultation bilaterally. No wheezing or crackles. CVS: Regular rate and rhythm, S1 and S2 present, no murmurs or gallops appreciated. ABDOMEN: Soft, non-tender. No signs of distention. No rebound, no guarding, and no masses palpated. Bowel sounds are normal. EXTREMITIES: FROM in all major joints, no edema, no cyanosis or clubbing. NEURO: Alert and oriented x 3. No acute neurological deficits. Speech is normal and follows commands. SKIN: Dry and warm Triage Information Reviewed: Yes Vital Signs On Initial Exam: Initial Vitals Temp Pulse Resp BP Pulse Ox 98.2 F 102 18 131/80 99 11/05/19 12:31 11/05/19 12:31 11/05/19 12:31 11/05/19 12:31 11/05/19 12:31 Vital Signs Reviewed: Yes Procedures - Sedation Patient Received Moderate/Deep Sedation with Procedure: No Diagnostics - Vital Signs Vital Signs Temp Pulse Resp BP Pulse Ox 11/05/19 12:31 98.2 F 102 18 131/80 99 - Laboratory Lab Statement: Any lab studies that have been ordered have been reviewed, and results considered in the medical decision making process. EENT Course/Dx - Course Assessment/Plan: This pt is a 23 y/o male presenting to [facility] c/o left upper dental pain and swelling since 3 days ago. Pt states since 3 days ago he has noticed swelling to the left side of his face. Pt reports he has difficulty eating and drinking secondary to discomfort. Additionally notes he has a foul taste in his mouth. Denies fever, difficulty breathing, difficulty swallowing. Pt notes he has been unable to see a dentist and states he is new in the area. Denies any PMHx. Denies tobacco, alcohol, and drug use. Allergies to Tramadol. In the ED course the patient was given Augmentin for the infection and ibuprofen for pain. At this point the patient will be discharged home with follow-up from his dentist and his primary care physician. He was given a prescription for Augmentin and ibuprofen. The patient is hemodynamically stable , alert and oriented 3. - Differential Diagnoses Differential Diagnoses: Dental Abscess, Dental Caries - Diagnoses Provider Diagnoses: Pain, dental Discharge ED - Sign-Out/Discharge Documenting (check all that apply): Patient Departure - Discharge home - Discharge Plan Condition: Stable Disposition: HOME Prescriptions: Amoxicillin/Clavulanate TAB* [Augmentin TAB 875*] 875 mg PO BID #20 tab Ibuprofen TAB* [Motrin TAB* 600 MG] 600 mg PO Q8H PRN #20 tab PRN Reason: Pain - Moderate Patient Education Materials: Toothache (ED) Referrals: [facility] [Outside] Additional Instructions: FOLLOW UP WITH A DENTIST SOON POSSIBLE. RETURN TO THE ED FOR ANY NEW OR WORSENING SYMPTOMS. - Billing Disposition and Condition Condition: STABLE Disposition: Home - Attestation Statements Document Initiated by Brandonibe: Yes Documenting Scribe: Agnes Irvin Provider For Whom Maria Esther is Documenting (Include Credential): Vasyl Hendrickson MD Scribe Attestation: Agnes Avila scribed for Vasyl Hendrickson MD on 11/05/19 at 2144. Scribe Documentation Reviewed: Yes Provider Attestation: The documentation as recorded by the Agnes dill accurately reflects the service I personally performed and the decisions made by , Vasyl Hendrickson MD Status of Scribe Document: Viewed
[2019-11-05] MEDS ORDERED: Ibuprofen TAB* 800 MG PO ONE (13:44)
[2019-11-05] MEDS ORDERED: Amoxicillin/Clavulanate TAB* 875 MG PO ONE (13:44)
[2019-11-05 14:55] VITALS: BP 119/75
== END 2019-11-05 15:05 | disposition home or self-care (01) ==
LOC: ED 12:30
DX: K08.89 Other specified disorders of teeth and supporting structures (principal); Z87.891 Personal history of nicotine dependence; F41.9 Anxiety disorder, unspecified
CPT/HCPCS: 99282; A9270-GY

== ENCOUNTER 2019-11-25 14:35 | Emergency (ER) | payer OTHER ==
--- NOTE | 2019-11-25 16:11 | ED ---
Adult Trauma - HPI Summary HPI Summary: Patient complains of pain to right ribs 3 days. 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 Persistent pain since with movement, deep breaths. Denies SOB, any other injuries, pain or symptoms. - History of Current Complaint Chief Complaint: EDChestWallPain Stated Complaint: RIB PAIN AFTER FALL PER PT Time Seen by Provider: 11/25/19 16:10 Hx Obtained From: Patient Ambulatory at the Scene: Yes Loss of Consciousness: no loss of consciousness Onset/Duration: Started Days Ago Onset of Pain: Immediate Onset Severity: Severe Current Severity: Severe Pain Intensity: 8 Pain Scale Used: 0-10 Numeric Location: Chest Character: Sharp, Stabbing Aggravating Factor(s): Movement, Deep Breaths, Palpation Alleviating Factor(s): Nothing Associated Signs & Symptoms: Positive: Negative - Allergy/Home Medications Allergies/Adverse Reactions: Allergies Allergy/AdvReac Type Severity Reaction Status Date / Time tramadol Allergy Vomiting Verified 11/25/19 14:46 PMH/Surg Hx/FS Hx/Imm Hx Endocrine/Hematology History: Denies: Hx Diabetes Respiratory History: Denies: Hx Asthma History: Denies: Hx Dialysis Sensory History: Denies: Hx Deafness Opthamlomology History: Denies: Hx Legally Blind EENT History: Denies: Hx Hearing Problem Neurological History: Denies: Hx Dementia Psychiatric History: Reports: Hx Anxiety - Surgical History Surgery Procedure, Year, and Place: removal of benign lump at left breast Infectious Disease History: No Infectious Disease History: Denies: Traveled Outside the [place] in Last 30 Days - Family History Known Family History: Positive: Diabetes - brother Negative: Blood Disorder - Social History Alcohol Use: None Substance Use Type: Reports: None Smoking Status (MU): Former Smoker Review of Systems Constitutional: Negative Eyes: Negative ENT: Negative Cardiovascular: Negative Respiratory: Negative Gastrointestinal: Negative Genitourinary: Negative Musculoskeletal: Other Skin: Negative Neurological: Negative Psychological: Normal All Other Systems Reviewed And Are Negative: Yes Physical Exam - Summary Physical Exam Summary: No erythema, ecchymosis, deformity, swelling noted to right lateral chest wall. Lung sounds clear to auscultation bilaterally. Abdomen soft nontender. Triage Information Reviewed: Yes Vital Signs On Initial Exam: Initial Vitals Temp Pulse Resp BP Pulse Ox 98.9 F 94 19 121/82 97 11/25/19 14:39 11/25/19 14:39 11/25/19 14:39 11/25/19 14:39 11/25/19 14:39 Vital Signs Reviewed: Yes Appearance: Positive: Well-Appearing Skin: Positive: Warm Head/Face: Positive: Normal Head/Face Inspection Eyes: Positive: Normal Neck: Positive: Supple Respiratory/Lung Sounds: Positive: Clear to Auscultation Cardiovascular: Positive: Normal Abdomen Description: Positive: Nontender Musculoskeletal: Positive: Normal Neurological: Positive: Normal Psychiatric: Positive: Normal AVPU Assessment: Alert - [place] Coma Scale Best Eye Response: 4 - Spontaneous Best Motor Response: 6 - Obeys Commands Best Verbal Response: 5 - Oriented Coma Scale Total: 15 Procedures - Sedation Patient Received Moderate/Deep Sedation with Procedure: No Diagnostics - Vital Signs Vital Signs Temp Pulse Resp BP Pulse Ox 11/25/19 16:05 98.3 F 86 16 126/64 98 11/25/19 14:39 98.9 F 94 19 121/82 97 - Laboratory Lab Statement: Any lab studies that have been ordered have been reviewed, and results considered in the medical decision making process. Adult Trauma Course/Dx - Course Course Of Treatment: Patient complains of pain to right ribs 3 days. 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 Persistent pain since with movement, deep breaths. Denies SOB, any other injuries, pain or symptoms. Vital signs within normal limits. Head and chest x-ray negative. - Diagnoses Provider Diagnoses: Acute chest wall pain Discharge ED - Sign-Out/Discharge Documenting (check all that apply): Patient Departure - Discharge Plan Condition: Stable Disposition: HOME Patient Education Materials: Chest Wall Pain (ED) Referrals: No Primary Care Phys,NOPCP [Primary Care Provider] - Additional Instructions: Ibuprofen 600 mg every 6 hours for 3-4 days. Ice 15 minutes at a time. Follow- up with primary care. Return to the ED for any new or worsening symptoms. - Billing Disposition and Condition Condition: STABLE Disposition: Home - Attestation Statements Provider Attestation: I was available for consultation for this patient. I did not evaluate the patient, or participate in any medical decision making or disposition decisions unless I am specifically named in the chart as having consulted on the patient. If I have consulted on the patient, please see my own ED note on the patient encounter. Karly Johnson MD
[2019-11-25] MEDS ORDERED: Ibuprofen TAB* 600 MG PO ONE (16:15)
[2019-11-25 16:28] VITALS: BP 126/81
== END 2019-11-25 16:20 | disposition home or self-care (01) ==
LOC: ED 14:35
DX: R07.89 Other chest pain (principal); Z88.5 Allergy status to narcotic agent; Z87.891 Personal history of nicotine dependence
CPT/HCPCS: 99282; A9270-GY